=== PATIENT | female | born 1950 | race Caucasian/White ===

== ENCOUNTER 2018-01-29 12:09 | Emergency (ER) | payer MEDICARE, MEDICAID ==
[~2018-01-29] VITALS: Ht 152.4 cm; Wt 38.0 kg
[2018-01-29] MEDS ORDERED: CEPH500C5 PO (13:31)
[2018-01-29] MEDS ORDERED: TETanus/Pertussis (Acell)/Diphther VAC/PF (Tdap-Adult) 0.5ml syringe IM ONE (13:35)
[2018-01-29 14:27] VITALS: BP 133/52
== END 2018-01-29 14:25 | disposition home or self-care (01) ==
LOC: ER 12:09
DX: S60.221A Contusion of right hand, initial encounter (principal); L03.113 Cellulitis of right upper limb; E78.00 Pure hypercholesterolemia, unspecified; G89.29 Other chronic pain; F17.200 Nicotine dependence, unspecified, uncomplicated; Z90.49 Acquired absence of other specified parts of digestive tract; Z88.8 Allergy status to other drugs, medicaments and biological substances; Z79.2 Long term (current) use of antibiotics; X50.0XXA Overexertion from strenuous movement or load, initial encounter; Y93.89 Activity, other specified; Y92.89 Other specified places as the place of occurrence of the external cause; Y99.8 Other external cause status
CPT/HCPCS: 73130; 73140; 90471; 90715; 99284

== ENCOUNTER 2018-02-26 15:40 | Emergency (ER) | payer MEDICARE, MEDICAID ==
[~2018-02-26 15:40] MED LIST: CEPH500C5 PO
[2018-02-26 16:09] VITALS: BP 165/84
[2018-02-26] MEDS ORDERED: acetaminophen 325mg tablet PO ONE (17:20)
== END 2018-02-26 17:43 | disposition home or self-care (01) ==
LOC: ER 15:41
DX: S60.221D Contusion of right hand, subsequent encounter (principal); L03.113 Cellulitis of right upper limb; M79.642 Pain in left hand; E78.00 Pure hypercholesterolemia, unspecified; G89.29 Other chronic pain; F17.210 Nicotine dependence, cigarettes, uncomplicated; Z90.49 Acquired absence of other specified parts of digestive tract; Z88.8 Allergy status to other drugs, medicaments and biological substances; Z79.2 Long term (current) use of antibiotics; Z79.899 Other long term (current) drug therapy; X50.0XXD Overexertion from strenuous movement or load, subsequent encounter
CPT/HCPCS: 99281

== ENCOUNTER 2019-10-03 14:55 | Emergency (ER) | payer MEDICARE, MEDICAID ==
[~2019-10-03] VITALS: Ht 152.4 cm; Wt 41.0 kg
[2019-10-03 17:01] VITALS: BP 144/86
== END 2019-10-03 17:03 | disposition home or self-care (01) ==
LOC: ER 14:55
DX: S60.212A Contusion of left wrist, initial encounter (principal); E78.00 Pure hypercholesterolemia, unspecified; F17.200 Nicotine dependence, unspecified, uncomplicated; G89.29 Other chronic pain; Z90.49 Acquired absence of other specified parts of digestive tract; Z79.899 Other long term (current) drug therapy; X58.XXXA Exposure to other specified factors, initial encounter; Y93.89 Activity, other specified; Y92.89 Other specified places as the place of occurrence of the external cause; Y99.8 Other external cause status
CPT/HCPCS: 99282

== ENCOUNTER 2020-05-24 17:17 | Emergency (ER) | payer MEDICARE, MEDICAID ==
[~2020-05-24] VITALS: Ht 152.4 cm; Wt 38.6 kg
[2020-05-24 18:05] VITALS: BP 170/93
== END 2020-05-24 18:06 | disposition home or self-care (01) ==
LOC: ER 17:18
DX: S49.82XA Other specified injuries of left shoulder and upper arm, initial encounter (principal); E78.00 Pure hypercholesterolemia, unspecified; G89.29 Other chronic pain; Z90.49 Acquired absence of other specified parts of digestive tract; Z88.8 Allergy status to other drugs, medicaments and biological substances; X58.XXXA Exposure to other specified factors, initial encounter; Y93.89 Activity, other specified; Y92.89 Other specified places as the place of occurrence of the external cause; Y99.8 Other external cause status
CPT/HCPCS: 99281

== ENCOUNTER 2021-01-30 14:00 | Emergency (ER) | payer MEDICARE, MEDICAID ==
[~2021-01-30] VITALS: Ht 152.4 cm; Wt 36.4 kg
[2021-01-30] MEDS ORDERED: HYDROcodone/acetaminophen 5mg/325mg tablet PO ONE (18:30)
[2021-01-30 19:06] VITALS: BP 142/86
== END 2021-01-30 19:07 | disposition home or self-care (01) ==
LOC: ER 14:01
DX: G89.29 Other chronic pain (principal); M54.89 Other dorsalgia; M54.30 Sciatica, unspecified side; E78.00 Pure hypercholesterolemia, unspecified; Z90.49 Acquired absence of other specified parts of digestive tract; Z88.8 Allergy status to other drugs, medicaments and biological substances
CPT/HCPCS: 99283

== ENCOUNTER 2023-10-14 14:27 | Emergency (ER) | payer MEDICARE, MEDICAID ==
[~2023-10-14] VITALS: Ht 152.4 cm; Wt 33.3 kg
[2023-10-14 14:29] VITALS: BP 140/64; PULSE 104; O2SAT 97
[2023-10-14 15:58] VITALS: RESP 16; TEMP 98.4
== END 2023-10-14 15:50 | disposition home or self-care (01) ==
LOC: ER 14:28
DX: S61.210A Laceration without foreign body of right index finger without damage to nail, initial encounter (principal); E78.00 Pure hypercholesterolemia, unspecified; G89.29 Other chronic pain; M54.9 Dorsalgia, unspecified; Z88.8 Allergy status to other drugs, medicaments and biological substances; Z90.49 Acquired absence of other specified parts of digestive tract; W45.8XXA Other foreign body or object entering through skin, initial encounter; Y93.89 Activity, other specified; Y92.89 Other specified places as the place of occurrence of the external cause; Y99.8 Other external cause status
CPT/HCPCS: 99282; A6402; A6449

== ENCOUNTER 2024-06-04 16:33 | Emergency (ER) | payer MEDICARE, MEDICAID ==
[~2024-06-04] VITALS: Ht 152.4 cm; Wt 40.9 kg
[2024-06-04] MEDS: dexamethasone sod phosphate 10mg/ml inj IM STA (17:53)
[2024-06-04] MEDS ORDERED: sulfamethoxazole/trimethoprim DS (800/160mg) tablet PO ONE (18:50)
[2024-06-04] MEDS: sulfamethoxazole/trimethoprim DS (800/160mg) tablet PO ONE (18:51)
[2024-06-04] MEDS ORDERED: PRED20TA PO (19:04)
[2024-06-04] MEDS ORDERED: DIPH25TA62 PO (19:04)
[2024-06-04] MEDS ORDERED: SULF1TAB49 PO (19:04)
[2024-06-04 19:21] VITALS: BP 174/90; PULSE 60; RESP 16; TEMP 98.6; O2SAT 100
== END 2024-06-04 19:29 | disposition home or self-care (01) ==
LOC: ER 16:33
DX: M25.531 Pain in right wrist (principal); G89.29 Other chronic pain; E78.00 Pure hypercholesterolemia, unspecified; Z88.8 Allergy status to other drugs, medicaments and biological substances; Z90.49 Acquired absence of other specified parts of digestive tract; Z79.899 Other long term (current) drug therapy
CPT/HCPCS: 29125; 73110; 73130; 96372; 99284; J1100